=== PATIENT | female | born 1975 | race Caucasian/White ===

== ENCOUNTER 2018-06-09 19:50 | Emergency (ER) | payer BC ==
[2018-06-09 20:07] VITALS: TEMP 98; O2SAT 98
[2018-06-09] MEDS ORDERED: LACTATED RINGERS 1,000 ML IVS ONE (20:18)
[2018-06-09] MEDS ORDERED: PROMETHAZINE HCL INJ 25 MG/ML VIAL IM ONE (20:18)
[2018-06-09] MEDS ORDERED: KETOROLAC TROMETHAMINE INJ 30 MG/ML VIAL IV ONE (20:18)
--- NOTE | 2018-06-09 20:18 | ED.PDOC ---
History of Present Illness - General Chief Complaint: Abdominal Pain Stated Complaint: Left lower quad abdominal pain Time Seen by Provider: 06/09/18 20:17 Information Source: patient Exam Limitations: no limitations - History of Present Illness Initial Comments: Racheal Serrano 43 y/o female stated that she had intermittent sharp abdominal pain for the last 3 days not getting any better.No nausea/vomiting,dysuria, constipation or diarrhea.Had bm today. Abdominal Pain Onset Location: other - left side Pain Radiation: no radiation Quality: intermittent, sharpness Timing/Duration: other - 3 days Improving Factors: other Worsening Factors: eating Associated Symptoms: denies symptoms Review of Systems - Review of Systems Constitutional: States: no symptoms reported EENTM: States: no symptoms reported Respiratory: States: no symptoms reported Cardiology: States: no symptoms reported Gastrointestinal/Abdominal: States: see HPI Genitourinary: States: no symptoms reported Musculoskeletal: States: no symptoms reported Skin: States: no symptoms reported Neurological: States: no symptoms reported All other Systems: Reviewed and Negative, No Change from Baseline Past Medical History (General) - Patient Medical History Hx Asthma: No Hx Cardiac Disorders: No Hx Hypertension: No Surgical History: other - laparoscopic lap - Vaccination History Hx Tetanus, Diphtheria Vaccination: No Hx Influenza Vaccination: No Hx Pneumococcal Vaccination: No - Social History Hx Tobacco Use: No Hx Alcohol Use: No Hx Substance Use: No - Activities of Daily Living Patient Lives Alone: No - Female History Patient is a Female of Child Bearing Age (10 -59 yrs old): Yes Hx Last Menstrual Period: 05/30/18 Patient : No Family Medical History - Family History Mother Family History: No Known Physical Exam - Physical Exam General Appearance: Alert, Comfortable, No apparent distress Eyes, Ears, Nose, Throat Exam: normal ENT inspection Neck: non-tender, supple Respiratory: chest non-tender, lungs clear, normal breath sounds Cardiovascular/Chest: normal peripheral pulses, regular rate, rhythm, no murmur Peripheral Pulses: No deficit Gastrointestinal/Abdominal: normal bowel sounds, soft, no organomegaly, tenderness - left side abdomen,no peritoneal signs Back Exam: no CVA tenderness, no vertebral tenderness Extremity: non-tender, normal inspection, no pedal edema, no calf tenderness Neurologic: alert, oriented x 3 Skin Exam: normal color, warm/dry Progress - Progress Progress: 06/09/18 21:44 Vital Signs - 8 hr 06/09/18 19:51 Temperature 98 F Pulse Rate [ 85 monitor] Respiratory 20 Rate Blood Pressure 130/87 [Left Arm] O2 Sat by Pulse 98 Oximetry - Results/Orders Results/Orders: 06/09/18 20:18 IV Care:Saline Lock per Protoc QSHIFT 06/09/18 21:36 Abdoment/Pelvis w/o Contrast [CT] Stat Laboratory Results - last 24 hr 06/09/18 06/09/18 06/09/18 20:04 20:06 20:18 WBC 7.3 RBC 4.55 Hgb 13.0 Hct 39.1 MCV 85.9 MCH 28.5 MCHC 33.2 RDW 16.8 H Plt Count 229 MPV 8.2 Absolute Neuts (auto) 4.90 Absolute Lymphs (auto) 1.80 Absolute Monos (auto) 0.40 Absolute Eos (auto) 0.10 Absolute Basos (auto) 0.00 Neutrophils % 67.1 Lymphocytes % 25.2 Monocytes % 5.7 Eosinophils % 1.5 Basophils % 0.5 PT 11.3 INR 0.970 PTT (SP) 32.4 Sodium 138 Potassium 3.6 Chloride 107 Carbon Dioxide 23 Anion Gap 11.6 L BUN 13 Creatinine 0.79 BUN/Creatinine Ratio 16.5 Random Glucose 89 Serum Osmolality 275.3 Calcium 9.2 Magnesium 2.1 Total Bilirubin 0.7 Direct Bilirubin 0.1 Indirect Bilirubin 0.6 AST 16 ALT 13 Alkaline Phosphatase 49 Creatine Kinase 140 CK-MB (CK-2) 2.2 CK-MB (CK-2) % 1.57 Troponin I 0.01 Serum Total Protein 7.2 Albumin 3.9 Lipase 22 Urine Color Yellow Urine Appearance Clear Urine pH 7.0 Ur Specific [place] 1.020 Urine Protein Negative Urine Glucose (UA) Negative Urine Ketones Negative Urine Blood Negative Urine Nitrite Negative Urine Bilirubin Negative Urine Urobilinogen 0.2 Ur Leukocyte Esterase Negative Urine RBC 1-3 Urine WBC 0-1 Ur Epithelial Cells 3-5 Urine Bacteria 0 Urine HCG, Qual Negative - EKG/XRAY/CT CT Ordered: Yes - abd/p-no acute abnormalities Departure - Departure Clinical Impression: Abdominal pain Qualifiers: Abdominal location: left lower quadrant Qualified Code(s): R10.32 - Left lower quadrant pain Time of Disposition: 22:37 Disposition: Discharge to Home or Self Care Departure Forms: ED Discharge - Pt. Copy, Patient Portal Self Enrollment Instructions: DI for Abdominal Pain-Adult Diet: full liquid diet - then to advance as tolerated Referrals: Lukas Wilkes MD [Primary Care Provider] - 1-2 Weeks Prescriptions: Tramadol HCl 50 mg PO TID PRN #14 tab PRN Reason: Pain Home Medications: Ambulatory Orders Tramadol HCl 50 mg PO TID PRN #14 tab 06/09/18 Additional Instructions: Follow up with primary Md 13 June 2018
--- NOTE | 2018-06-09 22:20 | CT ---
EXAM DESCRIPTION: Abdoment/Pelvis w/o Contrast CLINICAL HISTORY:43 years Female, pain Comparison: None TECHNIQUE: Contiguous axial images of the abdomen and pelvis were obtained followed by reconstruction images. This exam was performed according to our departmental dose-optimization program, which includes automated exposure control, adjustment of the mA and/or kV according to patient size and/or use of iterative reconstruction technique. FINDINGS: Lung bases: Areas of paraseptal and centrilobular emphysema at the lung bases. Mild bibasilar subsegmental atelectasis. Liver: Within normal limits Gallbladder:No gallstones. No intra or extrahepatic bile duct dilatation. Spleen: Within normal limits Pancreas: Within normal limits Adrenal glands: Within normal limits Kidneys: No renal stones. Mild nonspecific fullness of bilateral renal pelvises. No perinephric stranding. Bladder: Within normal limits GI tract: No evidence of obstruction or active inflammatory process. Appendix within normal limits. Uterus/adnexa: Anteverted uterus. No suspicious adnexal lesion. Vascular structures: Scattered aortic calcifications Free fluid: No free fluid. Lymph nodes: No radiographically enlarged lymph nodes Soft tissues: Within normal limits Bones: No acute osseous abnormality. Ear Mold Laboratory Technician view shows no additional findings. IMPRESSION: Negative for renal stones or acute intra-abdominal finding. Electronically signed by: Idalia Wellington MD 06/09/2018 10:19 PM CDT
[2018-06-09] MEDS ORDERED: HYDROcodone 10MG/APAP 325MG 1 EA TAB PO ONE (22:41)
[2018-06-09 22:55] VITALS: BP 116/60
== END 2018-06-09 22:54 | disposition home or self-care (01) ==
LOC: ER 19:50
DX: R10.32 Left lower quadrant pain (principal)
CPT/HCPCS: 74176; 80048; 80076; 81001; 81025; 82550; 82553; 83690; 84484; 85025; 85610; 85730; J1885; J2550; J7120